=== PATIENT | male | born 2000 ===

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

== ENCOUNTER → 2022-04-05 | Outpatient (CLI) | payer BC, OTHER | LOC: COL.RAD 09:00 | DX: S76.001A Unspecified injury of muscle, fascia and tendon of right hip, initial encounter (principal); X58.XXXA Exposure to other specified factors, initial encounter | CPT/HCPCS: J3301; Q9967 ==